=== PATIENT | female | born 2000 | race Caucasian/White ===

== ENCOUNTER 2022-02-27 12:28 | Emergency (ER) | payer OTHER, SELFPAY ==
[2022-02-27 12:54] VITALS: BP 117/72; PULSE 79; RESP 16; TEMP 36.7; O2SAT 100
--- NOTE | 2022-02-27 13:50 | ED.GENADULT ---
HPI - General Adult General Chief complaint: Urogenital-Female Stated complaint: vaginal pain Source: patient Mode of arrival: ambulatory Limitations: no limitations History of Present Illness HPI narrative: Patient presents for evaluation of vaginal pain. She indicates she had unprotected sexual intercourse with a male partner about one week ago. Pain started 2-3 days after that time. She denies any fever, chills, nausea, vomiting, abdominal pain, vaginal lesions, urinary symptoms, vaginal bleeding or discharge. She is not on contraception. LMP 01/26/22. States she has chronic pain in her chest and back for which she takes hydrocodone. No change in quality or severity of her chronic pain. No additional complaints or concerns. Related Data Home Medications Medication Instructions Recorded Confirmed hydrocodone 5 mg-acetaminophen 325 1 tablet PO PRN PRN Pain 02/27/22 02/27/22 mg tablet Allergies Allergy/AdvReac Type Severity Reaction Status Date / Time Penicillins Allergy Intermediate Hives Verified 02/27/22 14:29 amoxicillin Allergy Other Verified 02/27/22 13:40 Review of Systems Review of Systems: CONSTITUTIONAL: Denies fever, chills, or sweats. EYES: Denies visual changes, redness, or discharge. ENT: Denies rhinorrhea, congestion, sore throat, or otalgia. CARDIOVASCULAR: Denies chest pain, palpitations, or edema. RESPIRATORY: Denies cough or dyspnea. GASTROINTESTINAL: Denies abdominal pain, nausea, vomiting, or diarrhea. GENITOURINARY: Reports vaginal pain. Denies dysuria or hematuria. SKIN: Denies rash or itching. MUSCULOSKELETAL: Denies back pain, joint pain, or myalgia. NEUROLOGIC: Denies headache, numbness, dizziness, or weakness. PSYCHIATRIC: Denies anxiety or depression. [facility] Past Medical History Medical History Chronic back pain Chronic chest pain Surgical History Surgical History No pertinent past surgical history Family History Family History Mother Medical history non-contributory Social History Social History (Updated 02/27/22 @ 13:53 by AISLINN Nolan, ) Alcohol intake: never Substance use: never Living arrangements: alone Gender identity (if verbalized by the patient): Female Sexual Orientation (if Verbalized by the Patient): Straight or Heterosexual Spiritual care concerns: No Exam Narrative: GENERAL: Well-appearing, well-nourished, and in no acute distress. HEAD: Normocephalic, atraumatic. EYES: PERRLA and EOMI. ENT: Nares clear, no rhinorrhea or epistaxis. Mucous membranes moist. Oropharynx without tonsillar hypertrophy exudate or other lesions. Bilateral TMs pearly anna nonbulging NECK: Supple. No adenopathy or masses. No carotid bruits or JVD CHEST: Clear to auscultation. No respiratory distress. No wheezes rales or rhonchi HEART: Regular rate and rhythm. No murmur heard. Normal peripheral pulses. ABDOMEN: Soft, nontender, nondistended, normal active bowel sounds. GENITAL: No external genital lesions. No adnexal tenderness. No cervical motion tenderness. Small amount of thick white clumpy discharge in vaginal vault. EXTREMITIES: Normal range of motion. No edema. SKIN: Warm, dry, no rash. NEURO: No focal deficits. Alert and oriented x3. PSYCH: Normal mood and affect. Course Course Emergency Course: This is a 22-year-old female who presented for evaluation of vaginal pain. I do not appreciate any lesions on her exam. She did have a thick white clumpy discharge consistent with vaginal candidiasis. We will treat for such. Advised on safer sex practices. Specimens were sent for STI testing. She should follow-up outpatient for further evaluation and treatment and go to the ER for worsening symptoms. Patient in agreement with plan of care. Level of Care: Express Ca
== END 2022-02-27 14:48 | disposition home or self-care (01) ==
PROVIDERS: Emergency Provider Nurse Practitioner; PCP Family Medicine
DX: B37.3 Candidiasis of vulva and vagina (principal)
CPT/HCPCS: 81003; 81025; 87070; 87491; 87591; 87661; 99214; G0463

== ENCOUNTER 2023-09-24 13:40 | Emergency (ER) | payer OTHER, SELFPAY ==
[2023-09-24 13:55] VITALS: BP 116/70; PULSE 100; RESP 16; TEMP 36.9; O2SAT 100
--- NOTE | 2023-09-24 14:03 | ED.EXTPRO ---
HPI - Extremity Problem General Chief complaint: Extremity Problem,Nontraumatic Stated complaint: left foot pain Time Seen by Provider: 09/24/23 13:44 Source: patient Mode of arrival: ambulatory Limitations: no limitations History of Present Illness HPI Narrative: Daysi is a 23-year-old female patient presenting to the clinic today with complaints of left foot pain. She reports that the left foot pain has been getting worse over the past week. States she is having pain to the ball of her foot that is radiating into her toes and radiating up her leg. States the pain is worse with ambulation/weight-bearing. No known injury. Has been taking her Percocet, cyclobenzaprine, and gabapentin without relief. Related Data Home Medications Medication Instructions Recorded Confirmed cyclobenzaprine 5 mg tablet 5 mg PO TID PRN Muscle Pain 07/27/22 09/24/23 oxycodone-acetaminophen 5 mg-325 5 ml PO Q4-6H PRN Pain 07/27/22 09/24/23 mg/5 mL oral solution gabapentin 300 mg capsule 300 mg PO DAILY 09/24/23 09/24/23 levothyroxine 25 mcg tablet 25 mcg PO DAILY 09/24/23 09/24/23 temazepam 15 mg capsule 15 mg PO DAILY 09/24/23 09/24/23 Allergies Allergy/AdvReac Type Severity Reaction Status Date / Time Penicillins Allergy Intermediate Hives Verified 09/24/23 13:51 amoxicillin Allergy Other Verified 09/24/23 13:51 Review of Systems Review of Systems: Pertinent positives per HPI. Patient denies any fever, chills, rash, headache, visual changes, dizziness, cough, runny nose, sore throat, shortness of breath, chest pain, palpitations, nausea, vomiting, diarrhea, constipation, abdominal pain, or any urinary issues. [facility] Past Medical History Medical History Chronic back pain Chronic chest pain Odynophagia Thyroid nodule Surgical History Surgical History No pertinent past surgical history Family History Family History Mother Medical history non-contributory Social History Social History Smoking status: Unknown if ever smoked Alcohol intake: never Substance use: never Living arrangements: alone Gender identity (if verbalized by the patient): Female Sexual Orientation (if Verbalized by the Patient): Straight or Heterosexual Spiritual care concerns: No Comments At the time of my signature, I reviewed and agree with the nursing past medical, surgical, social, and family history. There is no relevant family history pertinent to the patient complaint. Exam Narrative: General: Well-developed, well nourished, in no apparent distress Head: Normocephalic, atraumatic. Cardio: Regular rate and rhythm, s1 and s2 normal, no murmur appreciated. Resp: Clear to auscultation bilaterally, no rhonchi, rales, wheezing or rubs. Musculoskeletal: No deformity, tender to palpation over the ball of the left foot with radiation pain into the toes and up her ankle/leg, pain with plantar flexion and extension against resistance, grossly normal range of motion, muscle strength strong and equal, peripheral pulse strong, no edema, no cyanosis, normal gait and station Course Course Emergency Course: Portions of this record may have been created with voice recognition software. Level of Care: Express Care Visit Vital Signs Vital signs: Vital signs reviewed MDM - Extremity (Nontraumatic) MDM Narrative Medical decision making narrative: At the time of visit patient is resting comfortably on the exam table. Patient appears to be nontoxic. Plan: I suspect patient has a neuropathy-possibly Lopez's neuroma. Patient cannot take any NSAIDs or steroids. 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 Supportive measure
== END 2023-09-24 14:21 | disposition home or self-care (01) ==
PROVIDERS: Emergency Provider Nurse Practitioner Family
DX: M79.672 Pain in left foot (principal)
CPT/HCPCS: 99213; G0463

== ENCOUNTER 2024-02-04 09:49 | Emergency (ER) | payer OTHER, SELFPAY ==
--- NOTE | ~2024-02-04 | XR_ITS ---
EXAMINATION: XR foot LT min 3V DATE: 02/04/2024 10:49 INDICATION: Left foot pain. TECHNIQUE: 4 views of left foot were obtained. COMPARISON: None. FINDINGS: Bone alignment is normal. No fracture. Joint spaces are normal. IMPRESSION: 1. Normal left foot. Reviewed, dictated and finalized at location A. IMPRESSION: 1. Normal left foot.
[2024-02-04 10:00] VITALS: BP 115/68; PULSE 87; RESP 16; TEMP 37.1; O2SAT 100
--- NOTE | 2024-02-04 10:18 | ED.LOWEXIN ---
HPI - Extremity Injury (Lower) General Chief Complaint: Extremity Injury, Lower Stated Complaint: Both Feet Pain Time Seen by Provider: 02/04/24 10:40 Source: patient and RN notes reviewed Mode of arrival: ambulatory Limitations: no limitations History of Present Illness HPI Narrative: 23-year-old female presents with concern for left foot injury. Reports a week ago she dropped a fan on the foot. Reports it has been hurting since then. Reports some bleeding under the 1st toenail. She is reporting she has chronic right foot pain which has been aggravated because she is limping on the left foot. She denies injury to the right foot. She has been taking her regular pain medications for her other chronic pain without relief of the foot MD complaint: foot injury Related Data Home Medications Medication Instructions Recorded Confirmed levothyroxine 25 mcg tablet 25 mcg PO DAILY 09/24/23 02/04/24 clonazepam 0.5 mg tablet 0.5 mg PO DIRECTED 02/04/24 02/04/24 cyclobenzaprine 10 mg tablet 10 mg PO TID PRN SPASMS 02/04/24 02/04/24 gabapentin 300 mg capsule 300 mg PO TID 02/04/24 02/04/24 oxycodone-acetaminophen 10 mg-325 1 tablet PO QID PRN Pain, Moderate 02/04/24 02/04/24 mg tablet Allergies Allergy/AdvReac Type Severity Reaction Status Date / Time Penicillins Allergy Intermediate Hives Verified 02/04/24 09:52 amoxicillin Allergy Other Verified 02/04/24 09:52 Review of Systems Review of Systems: CONSTITUTIONAL: Denies malaise, chills, sweats, or fever. SKIN: Denies rash or itching, open skin, laceration, abrasion, redness, warmth, swelling. MUSCULOSKELETAL: Reports left foot pain NEUROLOGIC: Denies numbness, weakness All systems reviewed & are unremarkable except as noted in HPI and below PMFSH Past Medical History Medical History Chronic back pain Chronic chest pain Odynophagia Thyroid nodule Surgical History Surgical History No pertinent past surgical history Family History Family History Mother Medical history non-contributory Social History Social History Smoking status: Unknown if ever smoked Alcohol intake: never Substance use: never Living arrangements: alone Gender identity (if verbalized by the patient): Female Sexual Orientation (if Verbalized by the Patient): Straight or Heterosexual Spiritual care concerns: No Comments At time of signature, agree with nursing past medical, surgical, social and family history. There is no relevant family history pertinent to the presenting complaint Exam Narrative: GENERAL: Well-appearing, well-nourished, and in no acute distress. HEAD: Normocephalic, atraumatic. EYES: PERRLA, conjunctivae clear NECK: Supple. CHEST: Speaks in full sentences. No respiratory distress. HEART: Regular rate and rhythm. Normal and equal peripheral pulses. EXTREMITIES: Left foot digits have grossly normal strength and sensation, normal range of motion. No edema or ecchymosis. Normal sensation with sensitivity to light touch and pain. No point tenderness. No open wounds, no skin tenting, no devitalized tissue or atrophy, no trophic changes, no obvious deformity, alignment normal, nearby joints and structures intact. Distal pulses palpable and equal bilaterally, skin warm, dry, pink. Capillary refill less than 3 seconds. SKIN: Warm, dry, no rash. Subungual hematoma noted to the 1st digit of the left foot NEURO: Alert and oriented x3. PSYCH: Normal mood and affect Course Course Emergency Course: Patient is aware of diagnosis, understands and agrees to treatment plan. Anticipatory guidance given. Patient agrees to follow-up as directed and is aware of reasons to seek care at the emergency department. Portions of this record may
== END 2024-02-04 11:10 | disposition home or self-care (01) ==
PROVIDERS: Emergency Provider Nurse Practitioner; PCP Physician Assistant
DX: S99.922A Unspecified injury of left foot, initial encounter (principal); W20.8XXA Other cause of strike by thrown, projected or falling object, initial encounter
CPT/HCPCS: 11740; 73630; 99213; G0463

== ENCOUNTER 2024-03-07 04:29 | Emergency (ER) | payer OTHER, SELFPAY ==
[2024-03-07 04:33] VITALS: BP 117/78; PULSE 113; RESP 20; TEMP 36.7; O2SAT 100
== END 2024-03-07 06:10 | disposition left against medical advice (07) ==
PROVIDERS: PCP Physician Assistant
DX: R09.81 Nasal congestion (principal)
CPT/HCPCS: 99199

== ENCOUNTER 2024-04-13 15:26 | Emergency (ER) | payer OTHER, SELFPAY ==
--- NOTE | ~2024-04-13 | CT_ITS ---
CT abdomen pelvis w con Ordering provider: Bhupendra Marks MD History: 24 years Female with . ABDOMINAL PAIN . Comparison: None. Technique: CT abdomen and pelvis with IV and without oral contrast. Automated exposure control and it erative reconstruction technique were employed. The dose-length product was 230.43 mGy-cm. 100 mL Omn ipaque 350 was given IV. Findings: VISUALIZED LOWER CHEST: Normal. UPPER ABDOMINAL ORGANS: Liver: Normal. Gallbladder: Normal. Spleen: Normal. Stomach/duodenum: Normal. Pancreas: Normal. Adrenals: Normal. Kidneys: Normal. PELVIC ORGANS: The bladder is normal. Uterus: Normal. Ruptured right ovarian follicle is noted. BOWEL AND MESENTERY: Colon: No evidence of diverticulitis. Normal appendix. Small Bowel: Normal. No obstruction. Peritoneum/mesentery: No free air. Minimal Free fluid in the pelvis. No mesenteric lymphadenopathy. RETROPERITONEUM: Normal aorta. No retroperitoneal lymphadenopathy. MUSCULOSKELETAL: Superficial soft tissues: The superficial soft tissues are normal. Bones: Normal spine. IMPRESSION: 1. No evidence of appendicitis, diverticulitis or intestinal obstruction. 2. Highly suggestive fracture in the right ovarian follicle with minimal fluid in the pelvis. Reviewed, dictated and finalized at location A.
[2024-04-13 15:28] VITALS: BP 144/98; PULSE 107; RESP 15; TEMP 36.5; O2SAT 98
--- NOTE | 2024-04-13 16:55 | ED.GENADULT ---
HPI - General Adult General Chief complaint: Nausea/Vomiting/Diarrhea Stated complaint: N/V/D Time Seen by Provider: 04/13/24 16:25 Source: patient Mode of arrival: ambulatory Limitations: no limitations History of Present Illness HPI narrative: 24 YEARS OLD WHITE FEMALE CAME TO THE ED WITH MULTIPLE COMPLAINTS MAINLY NAUSEA, VOMITING AND DIARRHEA OVER THE LAST 48 HOURS, COUGHING AND SORE THROAT OVER THE LAST 4 DAYS, FEVER LAST NIGHT, HISTORY OF MARK DISEASE PATIENT WAS COMPLAINING OF SEVERE DIFFUSE ABDOMINAL PAIN FOR THE LAST FEW DAYS WORSE TODAY Related Data Home Medications Medication Instructions Recorded Confirmed levothyroxine 25 mcg tablet 25 mcg PO DAILY 09/24/23 02/04/24 clonazepam 0.5 mg tablet 0.5 mg PO DIRECTED 02/04/24 02/04/24 cyclobenzaprine 10 mg tablet 10 mg PO TID PRN SPASMS 02/04/24 02/04/24 gabapentin 300 mg capsule 300 mg PO TID 02/04/24 02/04/24 oxycodone-acetaminophen 10 mg-325 1 tablet PO QID PRN Pain, Moderate 02/04/24 02/04/24 mg tablet Allergies Allergy/AdvReac Type Severity Reaction Status Date / Time Penicillins Allergy Intermediate Hives Verified 04/13/24 17:10 amoxicillin Allergy Other Verified 04/13/24 17:10 Review of Systems Review of Systems: All systems reviewed & are unremarkable except as noted in HPI and below PMFSH Past Medical History Medical History Chronic back pain Chronic chest pain Odynophagia Thyroid nodule Surgical History Surgical History No pertinent past surgical history Family History Family History Mother Medical history non-contributory Social History Social History Smoking status: Unknown if ever smoked Alcohol intake: never Substance use: never Living arrangements: alone Gender identity (if verbalized by the patient): Female Sexual Orientation (if Verbalized by the Patient): Straight or Heterosexual Spiritual care concerns: No Exam Narrative: GENERAL APPEARANCE: WELL-DEVELOPED, WELL-NOURISHED SKIN: NORMAL COLOR HEAD: NORMOCEPHALIC, NONTRAUMATIC EYES: CLEAR CONJUNCTIVA ENT: OROPHARYNX NORMAL, EARS NORMAL, NOSE NORMAL NECK: SUPPLE, NONTENDER CHEST AND RESPIRATORY: AIRWAY PATENT, NO RESPIRATORY DISTRESS, NO ACCESSORY MUSCLE USE HEART: REGULAR RATE/RHYTHM ABDOMEN: SOFT, DIFFUSE ABDOMINAL TENDERNESS, NO GUARDING OR REBOUND, NORMAL BOWEL SOUNDS VASCULAR: NORMAL PERIPHERAL PULSES, NORMAL CAPILLARY REFILL. MUSCULOSKELETAL: NORMAL RANGE OF MOTION, NONTENDER BACK NEUROLOGIC: ALERT AND ORIENTED ?3, BED BUG EXTERMINATOR IS NORMAL TESTED, NO GROSS MOTOR DEFICIT Course Vital Signs Vital signs: Vital Signs Temperature 36.5 C 04/13/24 15:28 Pulse Rate 107 H 04/13/24 15:28 Respiratory Rate 15 04/13/24 15:28 Blood Pressure 144/98 H 04/13/24 15:28 Pulse Oximetry 98 04/13/24 15:28 Oxygen Delivery Room Air 04/13/24 15:28 Temperature 36.5 C 04/13/24 15:28 Pulse Rate 78 04/13/24 18:57 Respiratory Rate 20 04/13/24 18:57 Blood Pressure 121/78 04/13/24 18:57 Pulse Oximetry 99 04/13/24 18:57 Oxygen Delivery Room Air 04/13/24 15:28 Medical Decision Making MDM Narrative Medical decision making narrative: PATIENT CAME WITH MULTIPLE SYMPTOMS INCLUDING NAUSEA, VOMITING, DIARRHEA, ABDOMINAL PAIN VITAL SIGNS SHOWING HEART RATE OF 107, PHYSICAL EXAMINATION SHOWED DIFFUSE TENDERNESS OF THE ABDOMEN DIFFERENTIAL DIAGNOSIS VIRAL GASTROENTERITIS, APPENDICITIS, DIVERTICULITIS, COLITIS, URINARY TRACT INFECTION, KIDNEY STON
[2024-04-13 17:10] LABS: BEDSIDEPREGUCG Negative (Negative)
[2024-04-13 17:12] LABS: Basophils Percent Auto 0.4 % (0.2-1.2); Eosinophils Percent Auto 0.1 % (0-4.4); Hematocrit 41.5 % (37.0-47.0); Hemoglobin 14.4 g/dL (12.0-15.0); Immature Granulocyte Absolute 0.03 K/mm3 (0.00-0.031); Immature Granulocyte Percent A 0.3 % (0-0.5); Lymphocytes Absolute Auto 1.82 K/mm3 (0.9-3.2); Lymphocytes Percent Auto 16.6 % (18.3-44.2); Mean Corpuscular HGB Conc 34.7 g/dl (32-36); Mean Corpuscular Hemoglobin 30.1 pg (26-34); Mean Corpuscular Volume 86.8 fl (80-100); Mean Platelet Volume 10.1 fl (7.4-10.4); Monocytes Absolute Auto 0.7 K/mm3 (0.1-0.6); Monocytes Percent Auto 6.3 % (2.6-8.5); Neutrophils Absolute Auto 8.4 K/mm3 (1.3-6.7); Neutrophils Percent Auto 76.3 % (45.5-73.1); Platelet Count Result 317 k/mm3 (150-375); Red Blood Count 4.78 M/mm3 (4.2-5.4); Red Cell Distribution Width 12.7 % (11.5-14.5)
[2024-04-13] MEDS: MORPHINE SULFATE (*CRX) 4 MG/ML INJ IV PUSH (17:15)
[2024-04-13] MEDS: SODIUM CHLORIDE 0.9% IV 2,000 ML 999 ML IV CONT (17:15)
[2024-04-13] MEDS: ONDANSETRON INJ 4 MG/2 ML VIAL IV PUSH (17:15)
[2024-04-13 17:27] LABS: Alanine Aminotransferase 13 U/L (6-35); Albumin Level 5.2 g/dL (3.5-5.1); Alkaline Phosphatase 77 U/L (38-126); Anion Gap 14 mmol/L (4-12); Aspartate Amino Transferase 23 U/L (14-36); Bilirubin,Total 0.8 mg/dL (0.2-1.3); Blood Urea Nitrogen 8 mg/dL (7-17); Carbon Dioxide 18 mmol/L (22-30); Chloride 102 mmol/L (98-107); Estimated CRCL calculation 79 ml/min; Estimated Glomerular Filt Rate > 60; Glucose 96 mg/dL (65-110); Lipase 189 U/L (23-300); Potassium 3.9 mmol/L (3.4-5.0); Sodium 134 mmol/L (137-145)
[2024-04-13 17:30] LABS: Amphetamine Screen Urine Negative (Negative); Barbiturate Screen Urine Negative (Negative); Benzodiazepines Screen Urine Negative (Negative); Cannabinoid Screen Urine Positive (Negative); Cocaine Screen Urine Negative (Negative); Methadone Screen Urine Negative (Negative); Opiate Screen Urine Negative (Negative); Phencyclidine Screen Urine Negative (Negative)
[2024-04-13 17:48] LABS: Influenza A QL RT-PCR Negative (Negative); Influenza B QL RT-PCR Negative (Negative); RSV RNA, RT-PCR Negative (Negative); SARS-CoV-2 RNA PCR Negative (Negative)
[2024-04-13 18:57] VITALS: BP 121/78; PULSE 78; RESP 20; O2SAT 99
== END 2024-04-13 19:29 | disposition home or self-care (01) ==
PROVIDERS: Emergency Provider Emergency Medicine; PCP Physician Assistant
DX: K52.9 Noninfective gastroenteritis and colitis, unspecified (principal); F12.10 Cannabis abuse, uncomplicated; Z20.822 Contact with and (suspected) exposure to COVID-19; Z79.899 Other long term (current) drug therapy
CPT/HCPCS: 36415; 74177; 80053; 80307; 81025; 83690; 85025; 87637; 96361; 96374; 96375; 99284; J2270; J2405; J7030; Q9967

== ENCOUNTER 2024-04-14 14:12 | Emergency (ER) | payer OTHER, SELFPAY ==
[2024-04-14 14:21] VITALS: BP 134/100; PULSE 128; RESP 18; TEMP 37.7; O2SAT 100
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
== END 2024-04-14 15:30 | disposition home or self-care (01) ==
PROVIDERS: Emergency Provider Nurse Practitioner; PCP Physician Assistant
DX: R10.9 Unspecified abdominal pain (principal)
CPT/HCPCS: 99211; G0463

== ENCOUNTER 2024-05-28 09:52 | Outpatient (CLI) | payer OTHER, SELFPAY ==
--- NOTE | ~2024-05-28 | CT_ITS ---
CT Scan of the Chest without Contrast: Clinical Indication: Subluxation of the sternum Technique: Contiguous sections were acquired throughout the chest without intravenous contrast. Dose reduction technique was used on this scan by utilizing automated exposure control and iterative recon struction technique. The dose-length product (DLP) was 128.03 mGy-cm. Findings: There is no evidence of any significant mediastinal, hilar or axillary lymphadenopathy. The mediastin al soft tissues appear normal. There is no evidence of pleural or pericardial effusion. The lungs are clear. No pulmonary nodules or infiltrates are noted. Images through the upper abdomen reveal no abnormalities. Impression: No significant abnormalities seen. Sternoclavicular joints appear unremarkable. Reviewed, dictated and finalized at [facility]. ORATE ACCOUNT EXECUTIVE Impression: No significant abnormalities seen. Sternoclavicular joints appear unremarkable.
== END 2024-05-28 09:53 | disposition home or self-care (01) ==
PROVIDERS: PCP Physician Assistant; Visit Provider Physician Assistant
DX: S43.20 Unspecified subluxation and dislocation of sternoclavicular joint (principal); X58.XXXS Exposure to other specified factors, sequela
CPT/HCPCS: 71250

== ENCOUNTER 2024-06-23 16:37 | Emergency (ER) | payer OTHER, SELFPAY ==
--- NOTE | ~2024-06-23 | XR_ITS ---
CHEST RADIOGRAPH, PA AND LATERAL CLINICAL HISTORY: cough X 1-2 WEEKS . COMPARISON: None available TECHNIQUE: PA and lateral views of the chest. FINDINGS The cardiomediastinal silhouette is unremarkable. The lungs are clear. Visualized osseous structures and soft tissues are unremarkable. IMPRESSION: No focal infiltrate or effusion. Reviewed, dictated and finalized at location A. CONTROL SPECIALIST
[2024-06-23 16:46] VITALS: BP 117/72; PULSE 115; RESP 16; TEMP 36.8; O2SAT 99
--- NOTE | 2024-06-23 17:46 | ED_ITS ---
HPI - URI/Sore Throat General Chief Complaint: Upper Respiratory Infection Stated Complaint: Sinus Time Seen by Provider: 06/23/24 17:47 Source: patient, RN notes reviewed and old records reviewed Mode of arrival: ambulatory Limitations: no limitations History of Present Illness HPI Narrative: Patient presents with complaints of 2 days of headache, sinus congestion, cough. She reports severe body aches. She denies any fevers. She reports that headache has subtle behind her left and I. She has been intermittently taking Tylenol with minimal relief. Related Data Home Medications ?Medication ?Instructions ?Recorded ?Confirmed ?Last Taken ?Type levothyroxine 25 mcg tablet 25 mcg PO DAILY 09/24/23 04/14/24 Unknown History gabapentin 300 mg capsule 300 mg PO TID 02/04/24 04/14/24 Unknown History oxycodone-acetaminophen 10 mg-325 1 tablet PO QID PRN Pain, Moderate 02/04/24 04/14/24 Unknown History mg tablet ondansetron 4 mg disintegrating 4 mg PO DIRECTED 04/14/24 04/14/24 Unknown History tablet doxepin 3 mg tablet mg 06/23/24 Unknown History Allergies Allergy/AdvReac Type Severity Reaction Status Date / Time Penicillins Allergy Intermediate Hives Verified 06/23/24 16:54 amoxicillin Allergy Other Verified 06/23/24 16:54 Review of Systems Review of Systems: All systems reviewed & are unremarkable except as noted in HPI and below Constitutional: Constitutional: Reports no additional constitutional complaints, Reports body ache(s), Reports headache(s) and Reports lethargy ENT: Reports system reviewed and no additional complaints, except as documented and Reports sore throat Cardiovascular: Cardiovascular: Reports no additional cardiovascular complaints Respiratory: Respiratory: Reports no additional respiratory complaints and Reports cough Gastrointestinal: Gastrointestinal: Reports no additional gastrointestinal complaints COUNTS INCLUDE 234 BEDS AT THE [facility] Past Medical History Medical History Chronic back pain Chronic chest pain Odynophagia Thyroid nodule Surgical History Surgical History No pertinent past surgical history Family History Family History Mother Medical history non-contributory Social History Social History (Reviewed 12/30/24 @ 18:17 by CHENTE Romero Smoking status: Unknown if ever smoked Alcohol intake: never Substance use: never Living arrangements: alone Gender identity (if verbalized by the patient): Female Sexual Orientation (if Verbalized by the Patient): Straight or Heterosexual Spiritual care concerns: No Comments At the time of my signature, I reviewed and agree with the nursing past medical, surgical, social, and family history. There is no relevant family history pertinent to the patient complaint. Exam Const: General: cooperative, no acute distress, alert and awake Orientation/consciousness: oriented to person, oriented to place and oriented to time HENMT: Head: normal to inspection Ears: TM's normal bilaterally Mouth: Yes moist mucous membranes Resp: Effort & Inspection: normal respiratory effort and able to speak in complete sentences Auscultation: clear to auscultation bilaterally, no crackles, no rales, no rhonchi and no wheezes Cardio: Palpation: normal PMI Rate: regular rate Rhythm: regular rhythm Heart sounds: S1 normal heart sound present and S2 normal heart sound present Neuro: General: oriented to person, oriented to place and oriented to time Cranial nerves: Yes CN's II-XII intact bilaterally Psych: Appearance: grossly normal Thought process: Normal thought process present Insight: Good insight present (Psych) Judgement: Good judgement present (Psych) Course Course Level of Care: Express Care Visit Vital Signs Vital signs: Vital Signs Temperature 98.3 F 06/23/24 16:46 Pulse Rate 115 H 06/23/24 16:46 Respiratory Rate 16 06/23/24 16:46 Blood Pressure 117/72 06/23/24 16:46 Pulse Oximetry 99 06/23/24 16:46 Oxygen Delivery Room Air 06/23/24 16:46 Temperature 98.3 F 06/23/24 16:46 Pulse Rate 115 H 06/23/24 16:46 Respiratory Rate 16 06/23/24 16:46 Blood Pressure 117/72 06/23/24 16:46 Pulse Oximetry 99 06/23/24 16:46 Oxygen Delivery Room Air 06/23/24 16:46 Reviewed MDM - URI/Sore Throat MDM Narrative Medical decision making narrative: Two days of symptoms, negative flu, negative COVID, negative strep. Culture pending. Negative chest x-ray. Patient declined offer of prescription for prednisone to treat symptoms. Says she would rather go home and go to bed. She is nontoxic appearing, stable for discharge home. Discharge instructions reviewed with patient, as well as provided in writing per nursing staff. The instructions also include specific and strict return/GO TO THE ER as well as f/u information. All questions have been answered, and the patient deny any further questions with discharge and discharge plan. Some parts of this dictation were generated by voice recognition software and may contain typographical and/or grammatical inaccuracies. Differential Diagnosis Differential diagnosis: Likely upper respiratory infection, croup, otitis media, sinusitis, bronchitis, influenza and pharyngitis Lab Data Attestation: I reviewed the patient's lab results. Imaging Data Attestation: I personally reviewed and interpreted this imaging study as follows: My impression: No acute finding Radiologist's impression: [facility] [address] [place] [address] XRay Report Signed Patient: Daysi Cano : 2000 MR#: [id number] Age: 24 Acct:[id number] Loc: [facility] ADM Date: 06/23/24Attending Dr: Ordering Physician: Dinora Ricks FNP Date of Service: 06/23/24 Procedure(s): XR chest 2V Accession Number(s): [id number] cc: Dinora Ricks FNP; Gallo, Nasim Huddleston. PA~ CHEST RADIOGRAPH, PA AND LATERAL CLINICAL HISTORY: cough X 1-2 WEEKS . COMPARISON: None available TECHNIQUE: PA and lateral views of the chest. FINDINGS The cardiomediastinal silhouette is unremarkable. The lungs are clear. Visualized osseous structures and soft tissues are unremarkable. IMPRESSION: No focal infiltrate or effusion. Reviewed, dictated and finalized at location A. TERIA DIRECTOR Dictated By: Dorcas Lopez MD 06/23/24 1801 Signed By: <Electronically signed by Dorcas Lopez MD in OV> Discharge Plan Discharge Clinical Impression: Upper respiratory infection Qualifiers: URI type: unspecified viral URI Qualified Code(s): J06.9 - Acute upper respiratory infection, unspecified Patient Disposition: Home, Self-Care Condition: Stable Instructions: Antibiotic Form, Cold Symptoms (ED) Additional Instructions: Use [id number] medications for your symptoms. Drink plenty of fluids, get plenty of rest. Emergency department for new or worse symptoms Patient Language: Latvian Prescriptions: No Action levothyroxine 25 mcg tablet 25 mcg PO DAILY gabapentin 300 mg capsule 300 mg PO TID oxycodone-acetaminophen 10-325 mg tablet 1 tablet PO QID PRN (Reason: Pain, Moderate) ondansetron 4 mg tablet,disintegrating 4 mg PO DIRECTED doxepin 3 mg tablet Follow-up/Referrals: Gallo,YNES Peter [Primary Care Provider] - 1 Week Stand Alone Forms: Work/School Release IP Time of Disposition: 18:14
[2024-06-23 17:56] LABS: EDINFLUASCREEN Negative (Negative); EDINFLUBSCREEN Negative (Negative)
[2024-06-23 17:57] LABS: EDCOVIDSCREEN Negative (Negative)
== END 2024-06-23 18:20 | disposition home or self-care (01) ==
PROVIDERS: Emergency Provider Nurse Practitioner Family; PCP Physician Assistant
DX: J06.9 Acute upper respiratory infection, unspecified (principal); Z20.822 Contact with and (suspected) exposure to COVID-19
CPT/HCPCS: 71046; 87426; 87804; 99213; G0463